=== PATIENT | female | born 1940 ===

== ENCOUNTER 2025-11-15 21:19 | Inpatient (IN) ==
[2025-11-15] MEDS ORDERED: IOPAMIDOL 100 ML BOTTLE IV ONE (21:20)
[2025-11-15 22:30] LABS: Basophils # (Auto) 0.02 K/mcL (0.00-0.30); Basophils % (Auto) 0.3 % (0.0-2.0); Eosinophils # (Auto) 0.03 K/mcL (0.00-0.70); Eosinophils % (Auto) 0.5 % (0.0-7.0); Hematocrit 37.5 % (34.1-44.9); Hemoglobin 12.0 g/dL (11.2-15.7); Lymphocytes # (Auto) 0.66 K/mcL (1.50-4.80); Lymphocytes % (Auto) 10.0 % (15.5-49.0); Mean Corpuscular HGB Conc 32.0 g/dL (31.0-36.0); Monocytes # (Auto) 0.55 K/mcL (0.10-0.90); Monocytes % (Auto) 8.4 % (1.0-12.0); Neutrophils % (Auto) 80.5 % (38.0-78.0); Platelet Count 116 K/mcL (140-440); RBC 3.71 M/mcL (3.59-5.38); WBC 6.6 K/mcL (4.5-11.0)
[2025-11-15 22:49] LABS: ALT/SGPT 17 U/L (<40); AST/SGOT 17 U/L (<32); Albumin 3.7 gm/dL (3.2-5.2); Albumin/Globulin Ratio 1.5 (1.0-2.3); Alkaline Phosphatase 64 U/L (39-117); Anion Gap 12.0 (8.0-16.0); Bilirubin,Total 0.3 mg/dL (0.1-1.0); Blood Urea Nitrogen 35 mg/dL (8-23); Calcium 8.9 mg/dL (8.6-10.4); Carbon Dioxide 22 mmol/L (22-30); Chloride 103 mmol/L (96-108); Globulin 2.5 gm/dL (2.2-3.7); Glucose 125 mg/dL (70-105); Potassium 4.5 mmol/L (3.3-5.1); Sodium 137 mmol/L (133-145)
[2025-11-15 23:01] LABS: Bilirubin,Urine NEGATIVE (Negative); Color,Urine LT. YELLOW; Glucose,Urine (UA) NEGATIVE (Negative); Ketones,Urine NEGATIVE (Negative); Leukocyte Esterase,Urine NEGATIVE /uL (Negative); PH,Urine 6.5 (5.0-9.0); Protein,Urine NEGATIVE (Negative); Specific Gravity,Urine 1.015 (1.000-1.035); Urobilinogen,Urine 0.2 mg/dL
[2025-11-15 23:01] LABS: INR 2.4 (0.9-1.1); Prothrombin Time 28.6 sec (11.9-14.5)
[2025-11-16] MEDS: HYDROmorphone 0.5 MG/0.5 ML SYRINGE IV ONE (00:16)
[2025-11-16 00:40] LABS: CRP,High Sensitivity 7.1 mg/L (1.0-3.0)
[2025-11-16] MEDS ORDERED: ONDANSETRON 4 MG/2 ML VIAL IV PRN (00:50)
[2025-11-16] MEDS ORDERED: NALOXONE HCL 0.4 MG/ML VIAL IV PRN (00:50)
[2025-11-16] MEDS ORDERED: IPRATROPIUM/ALBUTEROL 3 ML AMPUL.NEB NEB PRN (00:50)
[2025-11-16 01:25] LABS: Hematocrit 40.2 % (34.1-44.9); Hemoglobin 12.3 g/dL (11.2-15.7)
[2025-11-16] MEDS: LACTATED RINGERS 1,000 ML IV SCH (02:25)
[2025-11-16] MEDS: ACETAMINOPHEN 1,000 MG/100 ML BAG IV ONE ×2 (03:01→03:08)
[2025-11-16] MEDS: cefTRIAXone 1 GM VIAL IV SCH (03:07)
[2025-11-16] MEDS: cefTRIAXone 1 GM VIAL ONE (03:08)
[2025-11-16] MEDS: DOXYCYCLINE 100 MG in DEXTROSE 5% IN WATER 100 ML IV SCH ×2 (03:43→09:46)
[2025-11-16] MEDS: 0.9 % SODIUM CHLORIDE 10 ML SYRINGE IV SCH (04:36)
[2025-11-16 07:43] LABS: Basophils # (Auto) 0.03 K/mcL (0.00-0.30); Basophils % (Auto) 0.2 % (0.0-2.0); Eosinophils # (Auto) 0.04 K/mcL (0.00-0.70); Eosinophils % (Auto) 0.3 % (0.0-7.0); Hematocrit 36.2 % (34.1-44.9); Hemoglobin 11.3 g/dL (11.2-15.7); Lymphocytes # (Auto) 1.07 K/mcL (1.50-4.80); Lymphocytes % (Auto) 8.7 % (15.5-49.0); Mean Corpuscular HGB Conc 31.2 g/dL (31.0-36.0); Monocytes # (Auto) 1.20 K/mcL (0.10-0.90); Monocytes % (Auto) 9.7 % (1.0-12.0); Neutrophils % (Auto) 80.9 % (38.0-78.0); Platelet Count 126 K/mcL (140-440); RBC 3.55 M/mcL (3.59-5.38); WBC 12.3 K/mcL (4.5-11.0)
[2025-11-16 07:59] LABS: INR 2.6 (0.9-1.1); Prothrombin Time 30.3 sec (11.9-14.5)
[2025-11-16 08:08] LABS: ALT/SGPT 16 U/L (<40); AST/SGOT 26 U/L (<32); Albumin 3.6 gm/dL (3.2-5.2); Albumin/Globulin Ratio 1.3 (1.0-2.3); Alkaline Phosphatase 61 U/L (39-117); Anion Gap 12.0 (8.0-16.0); Bilirubin,Direct < 0.2 mg/dL (0-0.3); Bilirubin,Total 0.4 mg/dL (0.1-1.0); Blood Urea Nitrogen 36 mg/dL (8-23); Calcium 8.9 mg/dL (8.6-10.4); Carbon Dioxide 21 mmol/L (22-30); Chloride 103 mmol/L (96-108); Globulin 2.7 gm/dL (2.2-3.7); Glucose 134 mg/dL (70-105); Phosphorous 4.1 mg/dL (2.5-4.5); Potassium 5.1 mmol/L (3.3-5.1); Sodium 136 mmol/L (133-145); Triglycerides 63 mg/dL (<150); Uric Acid 5.4 mg/dL (2.5-8.0)
[2025-11-16] MEDS: DOCUSATE SODIUM 100 MG CAPSULE PO SCH (09:46)
[2025-11-16] MEDS: OXYBUTYNIN CHLORIDE 5 MG TABLET PO SCH (09:46)
[2025-11-16] MEDS: CYCLOBENZAPRINE 10 MG TABLET PO PRN (12:06)
[2025-11-16] MEDS: NIFEdipine 30 MG TAB.XL.24H PO SCH (12:06)
[2025-11-16 13:19] LABS: Hematocrit 36.5 % (34.1-44.9); Hemoglobin 11.4 g/dL (11.2-15.7)
[2025-11-16] MEDS: WARFARIN 1 MG TABLET PO ONE (13:55)
[2025-11-16] MEDS: ACETAMINOPHEN 1,000 MG/100 ML BAG IV PRN (17:02)
[2025-11-16 19:13] LABS: Hematocrit 37.2 % (34.1-44.9); Hemoglobin 11.4 g/dL (11.2-15.7)
[2025-11-16] MEDS: SENNOSIDES 1 TABLET PO SCH (21:51)
[2025-11-16] MEDS: PYRIDOSTIGMINE 60 MG TABLET PO SCH (21:51)
[2025-11-17 02:03] LABS: Hematocrit 36.2 % (34.1-44.9); Hemoglobin 11.0 g/dL (11.2-15.7)
[2025-11-17 06:29] LABS: INR 2.8 (0.9-1.1); Prothrombin Time 32.5 sec (11.9-14.5)
[2025-11-17 06:40] LABS: ALT/SGPT 16 U/L (<40); AST/SGOT 28 U/L (<32); Albumin 3.2 gm/dL (3.2-5.2); Albumin/Globulin Ratio 1.3 (1.0-2.3); Alkaline Phosphatase 56 U/L (39-117); Anion Gap 11.0 (8.0-16.0); Bilirubin,Direct 0.3 mg/dL (<0.3); Bilirubin,Total 0.5 mg/dL (0.1-1.0); Blood Urea Nitrogen 36 mg/dL (8-23); Calcium 8.5 mg/dL (8.6-10.4); Carbon Dioxide 21 mmol/L (22-30); Chloride 104 mmol/L (96-108); Globulin 2.4 gm/dL (2.2-3.7); Glucose 103 mg/dL (70-105); Phosphorous 3.1 mg/dL (2.5-4.5); Potassium 4.6 mmol/L (3.3-5.1); Sodium 136 mmol/L (133-145); Triglycerides 79 mg/dL (<150); Uric Acid 5.1 mg/dL (2.5-8.0)
[2025-11-17 07:02] LABS: Basophils # (Auto) 0.01 K/mcL (0.00-0.30); Basophils % (Auto) 0.1 % (0.0-2.0); Eosinophils # (Auto) 0.08 K/mcL (0.00-0.70); Eosinophils % (Auto) 0.8 % (0.0-7.0); Hematocrit 32.4 % (34.1-44.9); Hemoglobin 10.1 g/dL (11.2-15.7); Lymphocytes # (Auto) 0.92 K/mcL (1.50-4.80); Lymphocytes % (Auto) 9.1 % (15.5-49.0); Mean Corpuscular HGB Conc 31.2 g/dL (31.0-36.0); Monocytes # (Auto) 1.11 K/mcL (0.10-0.90); Monocytes % (Auto) 11.0 % (1.0-12.0); Neutrophils % (Auto) 78.8 % (38.0-78.0); Platelet Count 115 K/mcL (140-440); RBC 3.14 M/mcL (3.59-5.38); WBC 10.1 K/mcL (4.5-11.0)
[2025-11-17] MEDS ORDERED: WARFARIN 2 MG TABLET PO ONE (14:00)
[2025-11-17 15:45] LABS: Hematocrit 34.5 % (34.1-44.9); Hemoglobin 10.6 g/dL (11.2-15.7)
[2025-11-18 06:07] LABS: Basophils # (Auto) 0.04 K/mcL (0.00-0.30); Basophils % (Auto) 0.4 % (0.0-2.0); Eosinophils # (Auto) 0.21 K/mcL (0.00-0.70); Eosinophils % (Auto) 2.1 % (0.0-7.0); Hematocrit 37.7 % (34.1-44.9); Hemoglobin 11.4 g/dL (11.2-15.7); Lymphocytes # (Auto) 0.97 K/mcL (1.50-4.80); Lymphocytes % (Auto) 9.8 % (15.5-49.0); Mean Corpuscular HGB Conc 30.2 g/dL (31.0-36.0); Monocytes # (Auto) 1.05 K/mcL (0.10-0.90); Monocytes % (Auto) 10.6 % (1.0-12.0); Neutrophils % (Auto) 76.9 % (38.0-78.0); Platelet Count 117 K/mcL (140-440); RBC 3.61 M/mcL (3.59-5.38); WBC 9.9 K/mcL (4.5-11.0)
[2025-11-18 06:16] LABS: INR 2.2 (0.9-1.1); Prothrombin Time 26.8 sec (11.9-14.5)
[2025-11-18 06:33] LABS: ALT/SGPT 19 U/L (<40); AST/SGOT 40 U/L (<32); Albumin 3.4 gm/dL (3.2-5.2); Albumin/Globulin Ratio 1.2 (1.0-2.3); Alkaline Phosphatase 65 U/L (39-117); Anion Gap 13.0 (8.0-16.0); Bilirubin,Direct 0.3 mg/dL (<0.3); Bilirubin,Total 0.8 mg/dL (0.1-1.0); Blood Urea Nitrogen 27 mg/dL (8-23); Calcium 9.1 mg/dL (8.6-10.4); Carbon Dioxide 19 mmol/L (22-30); Chloride 103 mmol/L (96-108); Globulin 2.9 gm/dL (2.2-3.7); Glucose 93 mg/dL (70-105); Phosphorous 2.3 mg/dL (2.5-4.5); Potassium 4.5 mmol/L (3.3-5.1); Sodium 135 mmol/L (133-145); Triglycerides 98 mg/dL (<150); Uric Acid 4.8 mg/dL (2.5-8.0)
[2025-11-18] MEDS: WARFARIN 1 MG TABLET PO ONE (13:47)
[2025-11-19 06:59] LABS: INR 2.0 (0.9-1.1); Prothrombin Time 25.0 sec (11.9-14.5)
[2025-11-19 07:16] LABS: Basophils # (Auto) 0.01 K/mcL (0.00-0.30); Basophils % (Auto) 0.2 % (0.0-2.0); Eosinophils # (Auto) 0.12 K/mcL (0.00-0.70); Eosinophils % (Auto) 1.9 % (0.0-7.0); Hematocrit 49.6 % (34.1-44.9); Hemoglobin 16.0 g/dL (11.2-15.7); Lymphocytes # (Auto) 0.68 K/mcL (1.50-4.80); Lymphocytes % (Auto) 10.6 % (15.5-49.0); Mean Corpuscular HGB Conc 32.3 g/dL (31.0-36.0); Monocytes # (Auto) 0.58 K/mcL (0.10-0.90); Monocytes % (Auto) 9.0 % (1.0-12.0); Neutrophils % (Auto) 78.0 % (38.0-78.0); Platelet Count 88 K/mcL (140-440); RBC 5.04 M/mcL (3.59-5.38); WBC 6.4 K/mcL (4.5-11.0)
[2025-11-19 07:33] LABS: ALT/SGPT 19 U/L (<40); AST/SGOT 35 U/L (<32); Albumin 3.3 gm/dL (3.2-5.2); Albumin/Globulin Ratio 1.2 (1.0-2.3); Alkaline Phosphatase 64 U/L (39-117); Anion Gap 14.0 (8.0-16.0); Bilirubin,Direct 0.4 mg/dL (<0.3); Bilirubin,Total 0.9 mg/dL (0.1-1.0); Blood Urea Nitrogen 31 mg/dL (8-23); Calcium 9.1 mg/dL (8.6-10.4); Carbon Dioxide 19 mmol/L (22-30); Chloride 103 mmol/L (96-108); Globulin 2.8 gm/dL (2.2-3.7); Glucose 123 mg/dL (70-105); Phosphorous 3.0 mg/dL (2.5-4.5); Potassium 4.9 mmol/L (3.3-5.1); Sodium 136 mmol/L (133-145); Triglycerides 86 mg/dL (<150); Uric Acid 4.9 mg/dL (2.5-8.0)
[2025-11-19 07:39] LABS: C-Reactive Protein 11.30 mg/dL (0.03-0.80)
[2025-11-19 08:54] LABS: Hematocrit 37.8 % (34.1-44.9); Hemoglobin 11.8 g/dL (11.2-15.7)
[2025-11-19] MEDS: WARFARIN 3 MG TABLET PO ONE (13:18)
[2025-11-20 06:20] LABS: Basophils # (Auto) 0.03 K/mcL (0.00-0.30); Basophils % (Auto) 0.3 % (0.0-2.0); Eosinophils # (Auto) 0.12 K/mcL (0.00-0.70); Eosinophils % (Auto) 1.0 % (0.0-7.0); Hematocrit 35.9 % (34.1-44.9); Hemoglobin 11.6 g/dL (11.2-15.7); Lymphocytes # (Auto) 1.02 K/mcL (1.50-4.80); Lymphocytes % (Auto) 8.6 % (15.5-49.0); Mean Corpuscular HGB Conc 32.3 g/dL (31.0-36.0); Monocytes # (Auto) 1.48 K/mcL (0.10-0.90); Monocytes % (Auto) 12.5 % (1.0-12.0); Neutrophils % (Auto) 77.3 % (38.0-78.0); Platelet Count 172 K/mcL (140-440); RBC 3.61 M/mcL (3.59-5.38); WBC 11.8 K/mcL (4.5-11.0)
[2025-11-20 06:44] LABS: ALT/SGPT 26 U/L (<40); AST/SGOT 56 U/L (<32); Albumin 3.5 gm/dL (3.2-5.2); Albumin/Globulin Ratio 1.2 (1.0-2.3); Alkaline Phosphatase 68 U/L (39-117); Anion Gap 17.0 (8.0-16.0); Bilirubin,Direct 0.3 mg/dL (<0.3); Bilirubin,Total 0.9 mg/dL (0.1-1.0); Blood Urea Nitrogen 54 mg/dL (8-23); Calcium 9.5 mg/dL (8.6-10.4); Carbon Dioxide 19 mmol/L (22-30); Chloride 102 mmol/L (96-108); Globulin 2.9 gm/dL (2.2-3.7); Glucose 128 mg/dL (70-105); Phosphorous 3.4 mg/dL (2.5-4.5); Potassium 4.8 mmol/L (3.3-5.1); Sodium 138 mmol/L (133-145); Triglycerides 88 mg/dL (<150); Uric Acid 5.7 mg/dL (2.5-8.0)
[2025-11-20 06:56] LABS: INR 1.9 (0.9-1.1); Prothrombin Time 24.0 sec (11.9-14.5)
[2025-11-20] MEDS ORDERED: PNEUMOCOCCAL 23-VAL P-SAC VAC 0.5 ML SYRINGE IM ONE (10:00)
[2025-11-20] MEDS: CEFDINIR 300 MG CAPSULE PO SCH (10:06)
[2025-11-20] MEDS: WARFARIN 3 MG TABLET PO ONE (11:32)
[2025-11-20] MEDS: LACTATED RINGERS 1,000 ML IV ONE (11:33)
[2025-11-20] MEDS: ACETAMINOPHEN 500 MG TABLET PO PRN (11:38)
[2025-11-20] MEDS: LACTATED RINGERS 1,000 ML IV SCH (12:36)
[2025-11-20] MEDS ORDERED: DOXYCYCLINE HYCLATE 100 MG TABLET.ORL PO SCH (21:00)
[2025-11-20] MEDS ORDERED: DOXYCYCLINE 100 MG in DEXTROSE 5% IN WATER 100 ML IV SCH (21:00)
== END 2025-11-20 14:02 | DRG 562 ==
LOC: ED 21:19 → MEDSUR 11-16 00:42
PROVIDERS: ADMIT Student in an Organized Health Care Education/Training Program; ATTEND Student in an Organized Health Care Education/Training Program